=== PATIENT | female | born 1980 | race Caucasian/White ===

== ENCOUNTER → 2020-10-02 | Outpatient (CLI) | payer BC | LOC: MC.RAD 13:30 | DX: Z12.31 Encounter for screening mammogram for malignant neoplasm of breast (principal) ==

== ENCOUNTER → 2021-12-21 | Outpatient (CLI) | payer BC | LOC: MC.RAD 14:07 | DX: Z12.31 Encounter for screening mammogram for malignant neoplasm of breast (principal) ==

== ENCOUNTER 2024-10-22 10:25 | Day surgery (SDC) | payer BC ==
[~2024-10-22] VITALS: Ht 177.8 cm; Wt 136.1 kg
[~2024-10-22 10:25] MED LIST: LR 1,000 ML IV SCH; Ondansetron 4 MG/2 ML VIAL IV PRN
[2024-10-22] MEDS ORDERED: LEXAPRO 5MG5 MG PO (11:12)
[2024-10-22] MEDS ORDERED: MOBIC15 MG PO (11:13)
[2024-10-22] MEDS ORDERED: MULTI VITAMINS1 TAB PO (11:13)
[2024-10-22] MEDS ORDERED: ALLEGRA 60MG TA60 MG PO (11:13)
[2024-10-22 11:28] VITALS: BP 154/83; PULSE 60; TEMP 98.1
[2024-10-22 13:00] VITALS: BP 127/88; PULSE 70; TEMP 97.7
[2024-10-22 13:15] VITALS: BP 123/65; PULSE 58
--- NOTE | 2024-10-22 13:19 | NUR ---
1300: PT TO [facility] 7 FROM ENDO SUITE. AMBULATED FROM CART TO RECLINER X2 ASSIST. REPORT RECEIVED FROM ENDO NURSE. PT ALERT AND ORIENTED. DENIES PAIN OR NAUSEA. REQUESTING MUFFIN AND WATER RESTING IN RECLINER. CALL LIGHT IN REACH. NO FAMILY PRESENT. 1315: VSS PT ALERT AND ORIENTED. TOLERATING MUFFIN AND WATER. DENIES PAIN AND NAUSEA. RESTING IN RECLINER. CALL LIGHT IN REACH. NO FAMILY PRESENT.
[2024-10-22 13:30] VITALS: BP 132/88; PULSE 64
--- NOTE | 2024-10-22 13:50 | NUR ---
1330: DR. BATRES IN TO SPEAK WITH PT. VSS DISCHARGE EDUCATION DONE AT THIS TIME. PT STATED UNDERSTANDING OF DC INSTRUCTIONS. DC PAPERWORK GIVEN TO PT. IV DC'D AT THIS TIME. PT DENIES ASSISTANCE WITH DRESSING. 1345: PT AMBULATED INDEPENDENTLY FROM RECLINER TO WHEELCHAIR. PT OFF UNIT AT THIS TIME. PT DC TO HOME WITH FAMILY PER PERSONAL VEHICLE.
== END 2024-10-22 13:45 | disposition home or self-care (01) ==
LOC: SDCO 10:25
DX: Z12.11 Encounter for screening for malignant neoplasm of colon (principal); D12.5 Benign neoplasm of sigmoid colon; K64.0 First degree hemorrhoids; E66.9 Obesity, unspecified
CPT/HCPCS: J2704; J7120